=== PATIENT | female | born 1980 | race Caucasian/White ===

== ENCOUNTER 2017-07-12 12:50 | Emergency (ER) | payer MEDICARE, OTHER ==
[2017-07-12 15:23] LABS: #Eosinphils 0.1 thou/uL (0.0-0.7); #Lymphocytes 2.4 thou/uL (1.20-3.40); #Monocytes 0.6 thou/uL (0.11-0.59); #Neutrophils 6.8 thou/uL (1.40-6.50); %Basophils 0.4 % (0.0-1.0); %Eosinophils 1.1 % (0.0-10.0); %Lymphocytes 24.3 % (21.0-51.0); %Monocytes 6.1 % (0.0-10.0); %Neutrophils 68.2 % (42.0-75.0); Hemoglobin 12.8 g/dL (12.0-16.0); Mean Corpuscular HGB CONC 32.6 g/dL (32.0-36.0); Mean Corpuscular Hemoglobin 28.8 pg (27.0-31.0); Mean Corpuscular Volume 88.3 fl (81.0-99.0); Mean Platelet Volume 6.2 fL (7.4-10.4); Platelet Count 358 thou/uL (130-400); RBC Distribution Width 12.7 % (11.5-14.5); Red Blood Cell (RBC) Count 4.43 mill/uL (4.20-5.40)
[2017-07-12] MEDS ORDERED: Ketorolac Tromethamine 30 MG/ML VIAL ONE (15:43)
[2017-07-12 15:48] LABS: ALT (SGPT) 9 U/L (8-55); AST (SGOT) 13 U/L (5-34); Alkaline Phosphatase 44 U/L (40-150); Anion Gap 11 mmol/L (10-20); BUN (Urea Nitrogen) 9 mg/dL (7.0-18.7); Bilirubin, Total 0.3 mg/dL (0.2-1.2); Calc. Creatinine Clearance 0 mL/min (70-130); Calcium 9.2 mg/dL (7.8-10.44); Carbon Dioxide 24 mmol/L (22-29); Chloride 104 mmol/L (98-107); Estimated GFR-MDRD 86; Glucose 75 mg/dL (70-105); Potassium 3.9 mmol/L (3.5-5.1); Sodium 135 mmol/L (136-145)
[2017-07-12] MEDS ORDERED: Dexamethasone 4 mg/ml Vial ONE (15:53)
[2017-07-12 16:16] LABS: MONO NEGATIVE CONTROL ZONE White (Negative) (White); MONO POSITIVE CONTROL Pink Line (Positive) (PINK/RED); Mononucleosis NEGATIVE (NEGATIVE)
--- NOTE | 2017-07-12 16:25 | CT ---
CT NECK WITH CONTRAST: DATE: 07/12/17. HISTORY: A 37-year-old female with neck pain: sore throat. FINDINGS: No abscess or significant fat stranding identified involving the retropharyngeal, submandibular, tim vertebral, parotid, carotid, parapharyngeal, perivertebral, posterior cervical, submandibular, or mas ticator spaces. Lingual tonsil is mildly enlarged. Surgical absence of palatine tonsils. Mild enla rgement of adenoids. No air fluid levels in maxillary sinuses. Bilateral tympanomastoid cavities ar e grossly clear. There is an approximately 1 x 0.5 cm small focal thyroid nodule slightly exophytica lly protruding inferiorly from the lower pole of the left lobe of the thyroid gland, with density alec ntical to that of adjacent normal thyroid tissue. The right lobe of the thyroid gland is normal in a ppearance. There is mild to moderate degenerative disk disease at C6-7 of the cervical spine. No ot her findings in the C-spine. IMPRESSION: 1. No evidence of abscess. 2. Mild hyperplasia of the lingual tonsil. POS: NURY
== END 2017-07-12 18:25 | disposition home or self-care (01) ==
LOC: ERS 12:50
DX: J06.9 Acute upper respiratory infection, unspecified (principal); E03.9 Hypothyroidism, unspecified; G43.909 Migraine, unspecified, not intractable, without status migrainosus; F41.9 Anxiety disorder, unspecified; F32.9 Major depressive disorder, single episode, unspecified
CPT/HCPCS: 70491; 80053; 85025; 86308; 87081; 87430; 96361; 96374; J1100; J1885